=== PATIENT | female | born 1995 | race Caucasian/White ===

== ENCOUNTER 2021-02-07 08:04 | Outpatient (CLI) | payer OTHER | END 2021-02-07 08:17 | disposition home or self-care (01) | LOC: SONOGRAMA 08:04 → MAMO-SONO 08:15 → SONOGRAMA 08:17 | PROVIDERS: ATTEND Orthopaedic Surgery | DX: M25.511 Pain in right shoulder (principal); M75.121 Complete rotator cuff tear or rupture of right shoulder, not specified as traumatic ==